=== PATIENT | male | born 1995 | race Two or more races ===

== ENCOUNTER → 2017-04-08 | Outpatient (CLI) | payer OTHER | LOC: M PAIN 14:15 | DX: M79.1 Myalgia (principal); M54.40 Lumbago with sciatica, unspecified side; Z79.899 Other long term (current) drug therapy; Z79.891 Long term (current) use of opiate analgesic; Z88.0 Allergy status to penicillin; Z88.5 Allergy status to narcotic agent | CPT/HCPCS: G0463 ==

== ENCOUNTER → 2017-05-06 | Outpatient (CLI) | payer OTHER | LOC: M PAIN 14:30 | DX: M79.1 Myalgia (principal); M54.40 Lumbago with sciatica, unspecified side; Z79.891 Long term (current) use of opiate analgesic; Z79.899 Other long term (current) drug therapy; Z88.0 Allergy status to penicillin; Z88.5 Allergy status to narcotic agent | CPT/HCPCS: G0463 ==